=== PATIENT | male | born 1970 | race American Indian/Alaskan Native ===

== ENCOUNTER 2017-04-17 23:27 | Emergency (ER) | payer SELFPAY ==
[2017-04-18 00:28] LABS: Urine Drugs of Abuse Note Disclamer
[2017-04-18 00:28] LABS: Basophils % (Auto) 0.7 % (0.0-1.8); Eosinophils % (Auto) 8.1 % (0.0-4.3); Hematocrit 40.4 % (35.5-45.6); Hemoglobin 13.1 gm/dl (11.8-15.2); Mean Corpuscular HGB Conc 32 % (32-34); Mean Corpuscular Volume 79 fl (84-94); Platelet Count 143 K/mm3 (140-440); Red Cell Distribution Width 15.8 % (13.2-15.2); White Blood Count 7.6 K/mm3 (4.5-11.0)
[2017-04-18 00:33] LABS: Bilirubin,Urine NEG (Negative); Blood,Urine NEG (Negative); Ketones,Urine NEG (Negative); Leukocyte Esterase,Urine NEG (Negative); Mucus,Urine FEW /HPF; Nitrite,Urine NEG (Negative); Protein,Urine <15 mg/dL mg/dL (Negative); Urobilinogen,Urine < 2.0 mg/dL (<2.0); WBC,Urine < 1.0 /HPF (0.0-6.0)
[2017-04-18 00:33] LABS: Mean Corpuscular Hemoglobin 26 pg (28-32)
[2017-04-18 00:45] LABS: Anion Gap 18 mmol/L; BUN/Creatinine Ratio 8.75; Blood Urea Nitrogen 7 mg/dL (9-20); Calcium 9.3 mg/dL (8.4-10.2); Carbon Dioxide 23 mmol/L (22-30); Glucose 107 mg/dL (75-100); Potassium 3.7 mmol/L (3.6-5.0); Sodium 138 mmol/L (137-145)
--- NOTE | 2017-04-18 05:41 | Emergency Department Report ---
ED Psych HPI - General Chief Complaint: Psych Stated Complaint: MH EVAL Time Seen by Provider: 04/18/17 01:56 Source: police Mode of arrival: Ambulatory Limitations: No Limitations - History of Present Illness Initial Comments: 46-year-old male a past medical history of paranoid schizophrenia presents for personal jail with suicidal ideation. Patient states he heard voices while sleeping telling him they will kill him. Patient states she is not suicidal now. Patient states he is compliant with his medications. No physical complaints reported. - Related Data Home Medications Medication Instructions Recorded Confirmed Last Taken Divalproex Dr [DepaKOTE DR] 250 mg PO BID 04/18/17 04/18/17 04/17/17 FLUoxetine HCL [PROzac] 40 mg PO QDAY 04/18/17 04/18/17 04/17/17 OLANzapine [ZyPREXA] 5 mg PO QDAY 04/18/17 04/18/17 04/17/17 amLODIPine [Norvasc] 5 mg PO DAILY 04/18/17 04/18/17 04/17/17 traZODone [Desyrel] 50 mg PO QHS 04/18/17 04/18/17 04/16/17 Allergies Allergy/AdvReac Type Severity Reaction Status Date / Time almond oil Allergy Hives Verified 04/17/17 23:48 pollen extracts Allergy Hives Verified 04/17/17 23:48 ED Review of Systems ROS: Stated complaint: MH EVAL Other details as noted in HPI Comment: All other systems reviewed and negative Other: Constitutional: No fevers chills or weight loss Eyes: No eye pain visual changes or discharge ENT: No ear pain or throat pain Neck: Denies pain Respiratory: Denies cough wheezing shortness of breath Cardiovascular: Denies chest pain, palpitations, syncope GI: Denies abdominal pain, nausea, vomiting, diarrhea : Denies dysuria, urinary frequency, or urgency Musculoskeletal: Denies back pain, joint swelling Skin: Denies rash, lesions, erythema Neurologic: Denies headache, numbness, weakness Psychiatric: As per HPI ED Past Medical Hx - Past Medical History Previous Medical History?: No Hx Psychiatric Treatment: Yes (paranoia/schizophrenia) - Surgical History Past Surgical History?: No - Social History Smoking Status: Current Every Day Smoker Substance Use Type: Alcohol - Medications Home Medications: Home Medications Medication Instructions Recorded Confirmed Last Taken Type Divalproex Dr [DepaKOTE ] 250 mg PO BID 04/18/17 04/18/17 04/17/17 History FLUoxetine HCL [PROzac] 40 mg PO QDAY 04/18/17 04/18/17 04/17/17 History OLANzapine [ZyPREXA] 5 mg PO QDAY 04/18/17 04/18/17 04/17/17 History amLODIPine [Norvasc] 5 mg PO DAILY 04/18/17 04/18/17 04/17/17 History traZODone [Desyrel] 50 mg PO QHS 04/18/17 04/18/17 04/16/17 History ED Physical Exam - General Limitations: No Limitations - Other Other exam information: General: No limitations, patient is alert in no acute distress Head exam: Atraumatic, normocephalic Eyes exam: Normal appearance ENT: Moist mucous membrane, normal oropharynx Neck exam: Normal inspection, full range of motion Respiratory exam: Clear to auscultation bilateral, no wheezes, rales, crackles Cardiovascular: Normal rate and rhythm, normal heart sounds Abdomen: Soft, nondistended, and nontender, with normal bowel sounds, no rebound, or guarding Extremity: Full range of motion normal inspection no deformity Back: Normal Inspection, full range of motion, no tenderness Neurologic: Alert, oriented x3, cranial nerves intact, no motor or sensory deficit Psychiatric: normal affect, normal mood Skin: Warm, dry, intact ED Course Vital Signs 04/17/17 04/18/17 23:48 02:52 Temperature 98 F Pulse Rate 94 H 80 Respiratory 22 16 Rate Blood Pressure 158/89 129/80 [Left] O2 Sat by Pulse 96 97 Oximetry - Reevaluation(s) Reevaluation #1: 04/18/17 05:30 Patient remains calm and cooperative at ED - Consultations Consultation #1: 04/18/17 05:30 Mental health evaluation pending ED Medical Decision Making - Lab Data Result diagrams: 04/18/17 00:01 04/18/17 00:01 Lab Results 04/18/17 04/18/17 04/18/17 Range/Units 00:01 00:01 00:01 WBC 7.6 (4.5-11.0) K/mm3 RBC 5.10 H (3.65-5.03) M/mm3 Hgb 13.1 (11.8-15.2) gm/dl Hct 40.4 (35.5-45.6) % MCV 79 L (84-94) fl MCH 26 L (28-32) pg MCHC 32 (32-34) % RDW 15.8 H (13.2-15.2) % Plt Count 143 (140-440) K/mm3 Lymph % (Auto) 43.7 H (13.4-35.0) % [place] % (Auto) 8.1 H (0.0-7.3) % Eos % (Auto) 8.1 H (0.0-4.3) % Baso % (Auto) 0.7 (0.0-1.8) % Lymph # 3.3 (1.2-5.4) K/mm3 [place] # 0.6 (0.0-0.8) K/mm3 Eos # 0.6 H (0.0-0.4) K/mm3 Baso # 0.1 (0.0-0.1) K/mm3 Seg Neutrophils % 39.4 L (40.0-70.0) % Seg Neutrophils # 3.0 (1.8-7.7) K/mm3 Sodium 138 (137-145) mmol/L Potassium 3.7 (3.6-5.0) mmol/L Chloride 101.0 (98-107) mmol/L Carbon Dioxide 23 (22-30) mmol/L Anion Gap 18 mmol/L BUN 7 L (9-20) mg/dL Creatinine 0.8 (0.8-1.5) mg/dL Estimated GFR > 60 ml/min BUN/Creatinine Ratio 8.75 % Glucose 107 H (75-100) mg/dL Calcium 9.3 (8.4-10.2) mg/dL Urine Color (Yellow) Urine Turbidity (Clear) Urine pH (5.0-7.0) Ur Specific [place] (1.003-1.030) Urine Protein (Negative) mg/dL Urine Glucose (UA) (Negative) mg/dL Urine Ketones (Negative) mg/dL Urine Blood (Negative) Urine Nitrite (Negative) Urine Bilirubin (Negative) Urine Urobilinogen (<2.0) mg/dL Ur Leukocyte Esterase (Negative) Urine WBC (Auto) (0.0-6.0) /HPF Urine RBC (Auto) (0.0-6.0) /HPF Urine Mucus /HPF Urine Opiates Screen Urine Methadone Screen Ur Barbiturates Screen Ur Phencyclidine Scrn Ur Amphetamines Screen U Benzodiazepines Scrn Urine Cocaine Screen U Marijuana (THC) Screen Drugs of Abuse Note Plasma/Serum Alcohol < 0.01 (0-0.07) gm% 04/18/17 04/18/17 Range/Units 00:23 00:23 WBC (4.5-11.0) K/mm3 RBC (3.65-5.03) M/mm3 Hgb (11.8-15.2) gm/dl Hct (35.5-45.6) % MCV (84-94) fl MCH (28-32) pg MCHC (32-34) % RDW (13.2-15.2) % Plt Count (140-440) K/mm3 Lymph % (Auto) (13.4-35.0) % [place] % (Auto) (0.0-7.3) % Eos % (Auto) (0.0-4.3) % Baso % (Auto) (0.0-1.8) % Lymph # (1.2-5.4) K/mm3 [place] # (0.0-0.8) K/mm3 Eos # (0.0-0.4) K/mm3 Baso # (0.0-0.1) K/mm3 Seg Neutrophils % (40.0-70.0) % Seg Neutrophils # (1.8-7.7) K/mm3 Sodium (137-145) mmol/L Potassium (3.6-5.0) mmol/L Chloride (98-107) mmol/L Carbon Dioxide (22-30) mmol/L Anion Gap mmol/L BUN (9-20) mg/dL Creatinine (0.8-1.5) mg/dL Estimated GFR ml/min BUN/Creatinine Ratio % Glucose (75-100) mg/dL Calcium (8.4-10.2) mg/dL Urine Color Yellow (Yellow) Urine Turbidity Clear (Clear) Urine pH 6.0 (5.0-7.0) Ur Specific [place] 1.013 (1.003-1.030) Urine Protein <15 mg/dl (Negative) mg/dL Urine Glucose (UA) Neg (Negative) mg/dL Urine Ketones Neg (Negative) mg/dL Urine Blood Neg (Negative) Urine Nitrite Neg (Negative) Urine Bilirubin Neg (Negative) Urine Urobilinogen < 2.0 (<2.0) mg/dL Ur Leukocyte Esterase Neg (Negative) Urine WBC (Auto) < 1.0 (0.0-6.0) /HPF Urine RBC (Auto) 3.0 (0.0-6.0) /HPF Urine Mucus Few /HPF Urine Opiates Screen Presumptive negative Urine Methadone Screen Presumptive negative Ur Barbiturates Screen Presumptive negative Ur Phencyclidine Scrn Presumptive negative Ur Amphetamines Screen Presumptive negative U Benzodiazepines Scrn Presumptive negative Urine Cocaine Screen Presumptive negative U Marijuana (THC) Screen Presumptive negative Drugs of Abuse Note Disclamer Plasma/Serum Alcohol (0-0.07) gm% - Medical Decision Making Mental health evaluation pending. 1013 and transferred form have been signed. Patient medically clear for psychiatric admission if necessary. - Differential Diagnosis psychosis, suicidal ideation, schizophrenia Critical Care Time: No Critical care attestation.: If time is entered above; I have spent that time in minutes in the direct care of this critically ill patient, excluding procedure time. ED Disposition Clinical Impression: Psychosis, Suicidal ideation, Schizophrenia Disposition: [id number]/TX-65 PSY HOSP/PSY UNIT Is pt being admited?: No Condition: Stable Time of Disposition: 05:31 (awaiting evaluation and acceptance)
--- NOTE | 2017-04-18 12:19 | Consultation ---
History of Present Illness - Reason for Consult Reason for consult: suicidal thoughts Medications and Allergies Allergies Allergy/AdvReac Type Severity Reaction Status Date / Time almond oil Allergy Hives Verified 04/17/17 23:48 pollen extracts Allergy Hives Verified 04/17/17 23:48 Home Medications Medication Instructions Recorded Confirmed Last Taken Type Divalproex Dr [DepaKOTE DR] 250 mg PO BID 04/18/17 04/18/17 04/17/17 History FLUoxetine HCL [PROzac] 40 mg PO QDAY 04/18/17 04/18/17 04/17/17 History OLANzapine [ZyPREXA] 5 mg PO QDAY 04/18/17 04/18/17 04/17/17 History amLODIPine [Norvasc] 5 mg PO DAILY 04/18/17 04/18/17 04/17/17 History traZODone [Desyrel] 50 mg PO QHS 04/18/17 04/18/17 04/16/17 History Mental Status Exam - Vital signs Last Vital Signs Temp 98 F 04/17/17 23:48 Pulse 77 04/18/17 06:13 Resp 16 04/18/17 06:13 BP 148/93 04/18/17 06:13 Pulse Ox 100 04/18/17 06:13 Results Result Diagrams: 04/18/17 00:01 04/18/17 00:01 Abnormal lab results 04/18/17 04/18/17 Range/Units 00:01 00:01 RBC 5.10 H (3.65-5.03) M/mm3 MCV 79 L (84-94) fl MCH 26 L (28-32) pg RDW 15.8 H (13.2-15.2) % Lymph % (Auto) 43.7 H (13.4-35.0) % [place] % (Auto) 8.1 H (0.0-7.3) % Eos % (Auto) 8.1 H (0.0-4.3) % Eos # 0.6 H (0.0-0.4) K/mm3 Seg Neutrophils % 39.4 L (40.0-70.0) % BUN 7 L (9-20) mg/dL Glucose 107 H (75-100) mg/dL All other labs normal. Assessment and Plan Assessment and plan: CHIEF COMPLAINT IN PATIENTS WORDS: HISTORY OF PRESENT ILLNESS REQUIRING ADMISSION TO INPATIENT LEVEL OF CARE: (Describe the onset of Illness, Intensity of Symptoms, and Circumstances Leading to Admission) This is a 46 year-old domiciled male who reports a formal PPH schizophrenia now presenting after patient's been having increasingly bizarre behaviors and in suicidal thoughts per review of the medical record. On examination, he was conversant and furnished the reports of him having increasing symptoms over the past several days due to acute psychosocial stressors. Patient reports he's been compliant with his medications. On clinical examination, he was a poor historian and therefore a variety of information is obtained from review of the medical record. Patient reports he is resides at a personal fpc and some of his medications were changed recently. Consequently, patient's been having some irregular thoughts anxiety and now periodic passive suicidal thoughts with no specific plan. Furthermore, patient notes that he's been having auditory hallucinations that are command type. PSYCHIATRIC REVIEW OF SYSTEMS: Substance: none noted Depression: Some sleep difficulties, and mood lability Emily: Labile moods Psychosis: Disorganized and paranoid, positive age Anxiety/ OCD/ PTSD: Appears to be somewhat anxious and withdrawn Suicidality: Passive suicidal thoughts Other Self-Injurious Behavior: none currently, no SIB noted recently Violent/ Aggressive Behavior: Recent aggression at the halfway CURRENT MEDICATIONS: ( Psychiatric and Non-psychiatric ) Prozac Thorazine Haldol Zyprexa Benadryl ALLERGIES: [place] oil, pollen PAST PSYCHIATRIC HISTORY: ( Prior Treatment, Precipitating Factors, Diagnosis, and Course of Treatment ) Inpatient: Multiple inpatient hospitalizations Outpatient: Currently lives in a personal fpc Prior Suicide Attempts: Unknown Prior Self-Injurious Behaviors: Unknown PAST PSYCHIATRIC MEDICATION TRIALS: Unknown MEDICAL HISTORY: (Chronic and Acute Illnesses, Current Medical Treatment, Recent Hospitalizations) Denies Detoxification / Withdrawal: none noted MENTAL STATUS EXAM: General Appearance: Dressed in hospital gown Sensorium/Consciousness: alert and responding to external stimuli Eye Contact: limited Attitude / Behavior: cooperative Psychomotor & Musculoskeletal Activity: WNL Mood: Better Affect: Constricted Speech / Language: WNL Thought Processes: Mostly organized Thought Content: Passive SI, no HI Perception: Likely responding to internal stimuli, and reports AH command type Orientation: person, place, time and situation Judgment What would you do if you smelled smoke in a crowded movie theater?: poor/impulsive Insight: poor Intelligence Vocabulary, general fund of knowledge, educational level: Average Capacity of ADLs: Independent STRENGTHS: PSYCHOSOCIAL AND ENVIRONMENTAL STRESSORS: ADMITTING DIAGNOSES Psychiatric: Schizophrenia Evidence for the following: Medical: n/a INITIAL PLAN OF CARE AND TREATMENT GOALS: Admitted to inpatient psychiatric care at [facility] today
[2017-04-18 13:25] VITALS: BP 121/74
== END 2017-04-18 16:30 ==
LOC: ED 23:27 → EEVIPCON 23:27 → ED 04-18 16:30
DX: R45.851 Suicidal ideations (principal); F20.9 Schizophrenia, unspecified; F29 Unspecified psychosis not due to a substance or known physiological condition; F17.200 Nicotine dependence, unspecified, uncomplicated; Z91.048 Other nonmedicinal substance allergy status
CPT/HCPCS: 36415; 80048; 80307; 81001; 85025; 99285; G0480; 80320